=== PATIENT | female | born 1950 | race Caucasian/White ===

== ENCOUNTER → 2016-09-20 | Outpatient (REF) | payer OTHER | LOC: M LAB REF 16:49 | PROVIDERS: ATTEND Physician Assistant | DX: N39.0 Urinary tract infection, site not specified (principal) ==

== ENCOUNTER → 2016-10-29 | Outpatient (REF) | payer OTHER ==
[2016-10-29 17:03] LABS: IMMUNOGLOBULIN A 62.9 MG/DL (70-400); IMMUNOGLOBULIN G 410 MG/DL (681-1648); IMMUNOGLOBULIN M 790 MG/DL (40-230); TOTAL PROTEIN 6.7 GM/DL (6.4-8.2)
[2016-10-31 10:54] LABS: ALBUMIN % 60.9 % (55.8-66.1)
[2016-10-31 10:55] LABS: ALBUMIN 4.08 GM/DL (3.29-5.55); GAMMA GLOBULIN % 13.8 % (11.1-18.8)
[2016-11-01 00:06] LABS: FREE KAPPA LIGHT CHAINS SERUM 28.2 mg/L (3.30-19.40); FREE LAMBDA LIGHT CHAINS SERUM 5.79 mg/L (5.71-26.30); KAPPA/LAMBDA RATIO SERUM 4.87 (0.26-1.65)
== END ==
LOC: M LAB REF 12:35
PROVIDERS: ATTEND Internal Medicine Medical Oncology
DX: D47.2 Monoclonal gammopathy (principal); N18.6 End stage renal disease

== ENCOUNTER → 2017-01-27 | Outpatient (CLI) | payer OTHER ==
[2017-01-27 07:52] LABS: ALBUMIN 3.6 GM/DL (3.2-5.2); ALBUMIN/GLOBULIN RATIO 1.09 (1.00-1.93); ALKALINE PHOSPHATASE 55 U/L (45-117); ALT/SGPT 23 U/L (12-78); ANION GAP 6 MEQ/L (8-16); AST/SGOT 16 U/L (15-37); BILIRUBIN,TOTAL 0.3 MG/DL (0.2-1.0); BLOOD UREA NITROGEN 18 MG/DL (7-18); CALCIUM LEVEL 8.7 MG/DL (8.8-10.2); CARBON DIOXIDE LEVEL 31 MEQ/L (21-32); CHLORIDE LEVEL 104 MEQ/L (98-107); CHOLESTEROL LEVEL 206 MG/DL (<200); CREATININE FOR GFR 0.97 MG/DL (0.55-1.02); GLOMERULAR FILTRATION RATE > 60.0 (>45); GLUCOSE, FASTING 88 MG/DL (80-110); POTASSIUM SERUM 4.1 MEQ/L (3.5-5.1); SODIUM LEVEL 141 MEQ/L (136-145); TOTAL PROTEIN 6.9 GM/DL (6.4-8.2); TRIGLYCERIDES LEVEL 144 MG/DL (<150)
== END ==
LOC: M LAB 07:02
PROVIDERS: ATTEND Emergency Medicine
DX: L50.1 Idiopathic urticaria (principal)

== ENCOUNTER → 2017-04-28 | Outpatient (REF) | payer MEDICARE, OTHER ==
[~2017-04-28] MED LIST: ASPI81TA85 PO; BIMA01SOL; COMBIGAN; LEVOTAB10
[2017-04-28 15:06] LABS: IMMUNOGLOBULIN A 58.1 MG/DL (70-400); IMMUNOGLOBULIN G 436 MG/DL (681-1648); IMMUNOGLOBULIN M 769 MG/DL (40-230); TOTAL PROTEIN 6.8 GM/DL (6.4-8.2)
[2017-04-29 15:03] LABS: ALBUMIN 4.26 GM/DL (3.29-5.55); ALBUMIN % 62.6 % (55.8-66.1); GAMMA GLOBULIN % 13.6 % (11.1-18.8)
[2017-04-30 14:14] LABS: FREE KAPPA LIGHT CHAINS SERUM 21.5 mg/L (3.3-19.4); FREE LAMBDA LIGHT CHAINS SERUM 5.1 mg/L (5.7-26.3); KAPPA/LAMBDA RATIO SERUM 4.22 (0.26-1.65)
== END ==
LOC: M LAB REF 13:35
PROVIDERS: ATTEND Internal Medicine Medical Oncology
DX: D47.2 Monoclonal gammopathy (principal)

== ENCOUNTER → 2017-05-13 | Outpatient (CLI) | payer MEDICARE, OTHER ==
[~2017-05-13] MED LIST changes: +GASTROGRAFIN SOLUTION 30ML (Q9963) As Ordered ONE; +ISOVUE-370 76% 100ML VIAL (Q9967) As Ordered ONE
--- NOTE | 2017-05-13 13:25 | REP ---
CT abdomen and pelvis without and with IV contrast: With oral contrast. History: Question lymphadenopathy. IgM gammopathy with question of splenomegaly on physical examination. Comparison CT abdomen pelvis September 03, 2012. CT contrast dose: 100 mL of intravenous Isovue 370. CT findings: The craniocaudal span of the liver in the midclavicular line is 20.3 cm. The liver is considered enlarged. The spleen is normal in size measuring 10 cm in greatest transverse dimension. No focal hepatic or splenic lesion is seen. No adrenal lesion is seen on either side. No pancreatic abnormality is observed. The gallbladder is unremarkable. No retroperitoneal mass or adenopathy is seen. The kidneys are morphologically intact. There is mild left-sided hydronephrosis however. The left ureter is slightly prominent proximally. No cyst or mass is seen. No ureteral calculus is observed. There are 1 or 2 parapelvic cysts in the left kidney. No filling defect is seen in the collecting system on either side. On bone window settings there is a bilateral L5 spondylolysis and a grade 1 4 mm L5-S1 spondylolisthesis. Degenerative disc disease is seen at L5-S1 and at L4-5. No bony destructive lesion is appreciated. Small and large bowel loops are unremarkable. The patient is status post hysterectomy. Impression: Mild hepatomegaly again noted. No evidence of splenomegaly. No evidence of abdominal lymphadenopathy. Mild hydronephrosis and hydroureter on the left no apparent etiology. Parapelvic cyst left kidney. No other abnormality. Signed by Jim Draper MD 05/13/2017 05:17 P
== END ==
LOC: M RAD 10:47
PROVIDERS: ATTEND Internal Medicine Medical Oncology
DX: D47.2 Monoclonal gammopathy (principal); R16.0 Hepatomegaly, not elsewhere classified; N28.1 Cyst of kidney, acquired
CPT/HCPCS: 74178; Q9963; Q9967

== ENCOUNTER → 2017-05-15 | Outpatient (CLI) | payer MEDICARE, OTHER ==
[~2017-05-15] MED LIST changes: -GASTROGRAFIN SOLUTION 30ML (Q9963) As Ordered ONE; -ISOVUE-370 76% 100ML VIAL (Q9967) As Ordered ONE
--- NOTE | 2017-05-15 10:26 | REP ---
Digital diagnostic bilateral mammography with CAD and focused left breast ultrasound: History: Palpable lump left breast 7-8 o'clock position. The patient reports that this is not palpable today. Comparison mammography April 17, 2016, March 09, 2015, and February 16, 2014. Mammographic findings: Breast parenchyma remains heterogeneously dense in a pattern which may inhibit the sensitivity of mammography. There is no dominant density in the inferomedial quadrant of the left breast or elsewhere on either side mammographically visible. No architectural distortion or microcalcification is seen. No worrisome skin change is seen Focused left breast sonography findings: The left breast is scanned from 7 o'clock to 9 o'clock. Mildly heterogeneous fibroglandular background echotexture is seen. No cyst, mass or acoustic shadowing is appreciated. Impression: BIRADS category 2 benign bilateral breast imaging. This negative report should not dissuade one from biopsy of a palpable mass depending on its clinical characteristics. Clinical follow-up is recommended. BI-RADS/ACR category 2 mammogram. Benign finding(s). Routine annual screening mammography (for women over age 40). This mammogram was interpreted with the aid of an FDA-approved computer-aided detection system. The patient states she had a clinical breast exam in May 04, 2017 The patient letter being requested is M2 dense. Signed by Jim Draper MD 05/15/2017 02:36 P
== END ==
LOC: M RAD 08:40
PROVIDERS: ATTEND Nurse Practitioner Family
DX: N64.4 Mastodynia (principal)
CPT/HCPCS: 76642; G0204

== ENCOUNTER 2017-05-29 14:15 | Emergency (ER) | payer MEDICARE, OTHER ==
[~2017-05-29] VITALS: Ht 170.2 cm; Wt 65.9 kg
[2017-05-29 14:17] VITALS: BP 103/52
[2017-05-29] MEDS ORDERED: COMBIGAN (14:26)
[2017-05-29] MEDS ORDERED: LEVOTAB10 (14:26)
[2017-05-29] MEDS ORDERED: BIMA01SOL (14:26)
[2017-05-29] MEDS ORDERED: RABIES VACCINE HUMAN 2.5 INTERNATIONAL UNITS/ML VIAL (90675) IM ONE (15:30)
[2017-05-29] MEDS ORDERED: RABIES IMMUNE GLOBULIN 1500 INTERNATIONAL UNITS/10 ML VIAL (90375) IM ONE (15:30)
== END 2017-05-29 16:18 | disposition home or self-care (01) ==
LOC: M ED 14:15
DX: Z20.3 Contact with and (suspected) exposure to rabies (principal); Z23 Encounter for immunization; M79.645 Pain in left finger(s); M79.89 Other specified soft tissue disorders; H40.9 Unspecified glaucoma; Z86.73 Personal history of transient ischemic attack (TIA), and cerebral infarction without residual deficits; Z79.82 Long term (current) use of aspirin; Z79.899 Other long term (current) drug therapy; Z88.5 Allergy status to narcotic agent

== ENCOUNTER 2017-06-01 14:15 | Emergency (ER) | payer MEDICARE, OTHER ==
[~2017-06-01] VITALS: Ht 170.2 cm; Wt 65.9 kg
[~2017-06-01 14:15] MED LIST changes: -ASPI81TA85 PO
[2017-06-01 14:16] VITALS: BP 113/56
[2017-06-01] MEDS ORDERED: ASPI81TA85 PO (14:22)
[2017-06-01] MEDS ORDERED: RABIES VACCINE HUMAN 2.5 INTERNATIONAL UNITS/ML VIAL (90675) IM ONE (15:00)
== END 2017-06-01 15:25 | disposition home or self-care (01) ==
LOC: M ED 14:15
DX: Z20.3 Contact with and (suspected) exposure to rabies (principal)

== ENCOUNTER 2017-06-05 14:59 | Emergency (ER) | payer MEDICARE, OTHER ==
[~2017-06-05] VITALS: Ht 170.2 cm; Wt 65.9 kg
[~2017-06-05 14:59] MED LIST changes: +ASPI81TA85 PO
[2017-06-05] MEDS ORDERED: RABIES VACCINE HUMAN 2.5 INTERNATIONAL UNITS/ML VIAL (90675) IM ONE (16:30)
[2017-06-05 17:01] VITALS: BP 118/58
== END 2017-06-05 17:02 | disposition home or self-care (01) ==
LOC: M ED 14:59
DX: Z20.3 Contact with and (suspected) exposure to rabies (principal)

== ENCOUNTER 2017-06-12 14:18 | Emergency (ER) | payer MEDICARE, OTHER ==
[~2017-06-12] VITALS: Ht 170.2 cm; Wt 65.9 kg
[2017-06-12 14:18] VITALS: BP 122/56
[2017-06-12] MEDS ORDERED: RABIES VACCINE HUMAN 2.5 INTERNATIONAL UNITS/ML VIAL (90675) IM ONE (17:15)
== END 2017-06-12 17:32 | disposition home or self-care (01) ==
LOC: M ED 14:18
DX: Z20.3 Contact with and (suspected) exposure to rabies (principal); Z79.899 Other long term (current) drug therapy; Z79.82 Long term (current) use of aspirin; Z88.5 Allergy status to narcotic agent

== ENCOUNTER 2017-09-17 06:29 | Emergency (ER) | payer MEDICARE, OTHER ==
[2017-09-17 07:07] LABS: BASO # 0.1 10^3/uL (0.0-0.2); BASO % 0.9 % (0.0-1.0); EOS % 0.4 % (0.0-3.0); HEMATOCRIT 35.9 % (36.0-47.0); HEMOGLOBIN 12.6 g/dl (12.0-16.0); IMMATURE GRANULOCYTE % 0.2 % (0-0); LYMPH # 1.7 10^3/uL (1.5-4.5); LYMPH % 29.9 % (24.0-44.0); MEAN CORPUSCULAR HEMOGLOBIN 30.3 pg (27.0-33.0); MEAN CORPUSCULAR HGB CONC 35.1 g/dl (32.0-36.5); MEAN CORPUSCULAR VOLUME 86.3 fl (80.0-96.0); MONO # 0.7 10^3/uL (0.0-0.8); MONO % 12.6 % (0.0-5.0); NEUTROPHILS # 3.1 10^3/uL (1.8-7.7); PLATELET COUNT, AUTOMATED 229 10^3/uL (150-450); RED BLOOD COUNT 4.16 10^6/uL (4.00-5.40); RED CELL DISTRIBUTION WIDTH 12.4 % (11.5-14.5); WHITE BLOOD COUNT 5.6 10^3/uL (4.0-10.0)
[2017-09-17] MEDS: KETOROLAC 30 MG/ML VIAL (J1885) IV (07:15)
[2017-09-17] MEDS: MORPHINE 4 MG/ML 1ML SYRINGE IV ×2 (07:16→09:37)
[2017-09-17] MEDS: NS 1,000 ML IV (07:16)
[2017-09-17 07:32] LABS: ALBUMIN 3.9 GM/DL (3.2-5.2); ALBUMIN/GLOBULIN RATIO 1.15 (1.00-1.93); ALKALINE PHOSPHATASE 54 U/L (45-117); ALT/SGPT 26 U/L (12-78); AMYLASE 48 U/L (25-115); ANION GAP 9 MEQ/L (8-16); AST/SGOT 25 U/L (7-37); BILIRUBIN,DIRECT < 0.1 MG/DL (0.0-0.2); BILIRUBIN,TOTAL 0.4 MG/DL (0.2-1.0); BLOOD UREA NITROGEN 15 MG/DL (7-18); CALCIUM LEVEL 9.2 MG/DL (8.8-10.2); CARBON DIOXIDE LEVEL 25 MEQ/L (21-32); CHLORIDE LEVEL 106 MEQ/L (98-107); GLOMERULAR FILTRATION RATE 58.7 (>45); GLUCOSE, FASTING 106 MG/DL (80-110); LIPASE 146 U/L (73-393); POTASSIUM SERUM 3.8 MEQ/L (3.5-5.1); SODIUM LEVEL 140 MEQ/L (136-145); TOTAL PROTEIN 7.3 GM/DL (6.4-8.2)
[2017-09-17 07:38] LABS: APPEARANCE, URINE CLEAR (CLEAR); BACTERIA, URINE AUTO NEGATIVE (NEGATIVE); BILIRUBIN, URINE AUTO NEGATIVE (NEGATIVE); BLOOD, URINE BLOOD NEGATIVE (NEGATIVE); COLOR, URINE YELLOW (YELLOW); GLUCOSE, URINE (UA) AUTO NEGATIVE (NEGATIVE); KETONE, URINE AUTO NEGATIVE (NEGATIVE); LEUKOCYTE ESTERASE, URINE AUTO NEGATIVE (NEGATIVE); NITRITE, URINE AUTO NEGATIVE (NEGATIVE); PROTEIN, URINE AUTO NEGATIVE (NEGATIVE); RBC, URINE AUTO 2 /HPF (0-3); SPECIFIC GRAVITY URINE AUTO 1.016 (1.002-1.035); SQUAMOUS EPITHELIAL CELL UR AU 1 /HPF (0-6); UROBILINOGEN, URINE AUTO 0.2 mg/dL (0.0-2.0); WBC, URINE AUTO 0 /HPF (0-3)
[2017-09-17 07:48] LABS: LACTIC ACID SEPSIS PROTOCOL 1.9 MMOL/L (0.4-2.0)
[2017-09-17] MEDS ORDERED: GASTROGRAFIN SOLUTION 30ML (Q9963) As Ordered (09:08)
[2017-09-17] MEDS: GASTROGRAFIN SOLUTION 30ML PO (09:20)
[2017-09-17] MEDS: GASTROGRAFIN SOLUTION 30ML (Q9963) PO (09:20)
[2017-09-17] MEDS: ONDANSETRON 4MG/2ML VIAL (J2405) IV (09:36)
[2017-09-17] MEDS: LORazepam 2 MG/ML VIAL (J2060) IV (09:37)
[2017-09-17] MEDS ORDERED: ISOVUE-370 76% 100ML VIAL (Q9967) As Ordered (11:02)
[2017-09-17] MEDS: ONDANSETRON 4 MG ORAL DISINTEGRATING TAB (S0181) PO (13:06)
== END 2017-09-17 13:38 | disposition home or self-care (01) ==
LOC: M ED 06:29
DX: M54.31 Sciatica, right side (principal); Z79.899 Other long term (current) drug therapy; Z79.82 Long term (current) use of aspirin; Z86.69 Personal history of other diseases of the nervous system and sense organs
CPT/HCPCS: Q9963

== ENCOUNTER → 2017-10-21 | Outpatient (CLI) | payer MEDICARE, OTHER | LOC: M RAD 12:22 | DX: M51.16 Intervertebral disc disorders with radiculopathy, lumbar region (principal) | CPT/HCPCS: 72148 ==

== ENCOUNTER → 2017-11-17 | Outpatient (REF) | payer MEDICARE, OTHER ==
[2017-11-17 15:00] LABS: IMMUNOGLOBULIN A 63.6 MG/DL (70-400); IMMUNOGLOBULIN G 429 MG/DL (681-1648); IMMUNOGLOBULIN M 821 MG/DL (40-230); TOTAL PROTEIN 6.6 GM/DL (6.4-8.2)
[2017-11-18 13:48] LABS: ALBUMIN 4.11 GM/DL (3.29-5.55); ALBUMIN % 62.2 % (55.8-66.1); ALPHA-1-GLOBULIN % 3.6 % (2.9-4.9); ALPHA-1-GLOBULINS 0.24 GM/DL (0.17-0.41); ALPHA-2-GLOBULINS 0.66 GM/DL (0.42-0.99); BETA-1-GLOBULINS 0.44 GM/DL (0.28-0.60); BETA-1-GLOBULINS % 6.7 % (4.7-7.2); BETA-2-GLOBULINS 0.26 GM/DL (0.19-0.55); GAMMA GLOBULIN % 13.5 % (11.1-18.8); GAMMA GLOBULINS 0.89 GM/DL (0.65-1.58)
[2017-11-19 00:06] LABS: FREE KAPPA LIGHT CHAINS SERUM 22.2 mg/L (3.3-19.4); FREE LAMBDA LIGHT CHAINS SERUM 6.5 mg/L (5.7-26.3); KAPPA/LAMBDA RATIO SERUM 3.42 (0.26-1.65)
== END ==
LOC: M LAB REF 13:34
DX: D47.2 Monoclonal gammopathy (principal)
CPT/HCPCS: 84165

== ENCOUNTER → 2018-02-11 | Outpatient (CLI) | payer MEDICARE, OTHER ==
[2018-02-11 09:50] LABS: ALBUMIN 3.8 GM/DL (3.2-5.2); ALBUMIN/GLOBULIN RATIO 1.27 (1.00-1.93); ALKALINE PHOSPHATASE 54 U/L (45-117); ALT/SGPT 20 U/L (12-78); ANION GAP 6 MEQ/L (8-16); AST/SGOT 17 U/L (7-37); BILIRUBIN,TOTAL 0.5 MG/DL (0.2-1.0); BLOOD UREA NITROGEN 17 MG/DL (7-18); CALCIUM LEVEL 8.6 MG/DL (8.8-10.2); CARBON DIOXIDE LEVEL 28 MEQ/L (21-32); CHLORIDE LEVEL 109 MEQ/L (98-107); CHOLESTEROL LEVEL 218 MG/DL (<200); CHOLESTEROL RISK RATIO 4.638 (<5); CREATININE FOR GFR 0.92 MG/DL (0.55-1.30); GLOMERULAR FILTRATION RATE > 60.0 (>45); GLUCOSE, FASTING 87 MG/DL (70-100); HDL CHOLESTEROL 47 MG/DL (>40); LDL CHOLESTEROL 140.6 MG/DL (<100); NON-HDL-C 171 MG/DL; POTASSIUM SERUM 4.2 MEQ/L (3.5-5.1); SODIUM LEVEL 143 MEQ/L (136-145); TOTAL PROTEIN 6.8 GM/DL (6.4-8.2); TRIGLYCERIDES LEVEL 152 MG/DL (<150)
[2018-02-11 11:07] LABS: TOTAL 25(OH) VITAMIN D 38.4 NG/ML (30.0-100.0)
== END ==
LOC: M LAB 08:54
DX: L50.1 Idiopathic urticaria (principal)
CPT/HCPCS: 80053

== ENCOUNTER 2018-04-21 06:46 | Day surgery (SDC) | payer MEDICARE, OTHER ==
[2018-04-21] MEDS: NS 1,000 ML IV (07:00)
[2018-04-21] MEDS ORDERED: LIDOCAINE 2% INJ 100 MG/5 ML SDV (FOR ANES.) As Ordered (07:06)
[2018-04-21] MEDS ORDERED: PROPOFOL 200 MG/20 ML VIAL As Ordered (07:06)
== END 2018-04-21 08:58 | disposition home or self-care (01) ==
LOC: M OPP 06:46
DX: Z12.11 Encounter for screening for malignant neoplasm of colon (principal); K64.0 First degree hemorrhoids; Z86.73 Personal history of transient ischemic attack (TIA), and cerebral infarction without residual deficits; G62.9 Polyneuropathy, unspecified; Z86.19 Personal history of other infectious and parasitic diseases; G43.909 Migraine, unspecified, not intractable, without status migrainosus; L40.9 Psoriasis, unspecified; L71.9 Rosacea, unspecified; Z79.82 Long term (current) use of aspirin; Z79.899 Other long term (current) drug therapy; Z80.1 Family history of malignant neoplasm of trachea, bronchus and lung
CPT/HCPCS: G0121

== ENCOUNTER → 2018-06-01 | Outpatient (CLI) | payer MEDICARE, OTHER | LOC: M WHC 10:21 | DX: Z12.31 Encounter for screening mammogram for malignant neoplasm of breast (principal); Z85.41 Personal history of malignant neoplasm of cervix uteri; Z92.29 Personal history of other drug therapy | CPT/HCPCS: 77067 ==

== ENCOUNTER → 2019-04-19 | Outpatient (CLI) | payer MEDICARE, OTHER ==
[~2019-04-19] MED LIST changes: +CALC600T7 PO; +FISH120012 PO; +LIDO5DIS41 TD; +MOBI4TAB PO; +MULT1TAB18 PO; +SKEL800T97 PO
[2019-04-19 09:59] LABS: BASO % 0.6 % (0.0-1.0); EOS # 0.1 10^3/uL (0.0-0.50); EOS % 1.3 % (0.0-3.0); HEMATOCRIT 35.7 % (36.0-47.0); HEMOGLOBIN 11.8 g/dl (12.0-15.5); LYMPH # 1.6 10^3/uL (1.5-4.5); LYMPH % 34.7 % (24.0-44.0); MEAN CORPUSCULAR HEMOGLOBIN 29.8 pg (27.0-33.0); MEAN CORPUSCULAR HGB CONC 33.1 g/dl (32.0-36.5); MEAN CORPUSCULAR VOLUME 90.2 fl (80.0-96.0); MONO # 0.7 10^3/uL (0.0-0.8); MONO % 15.2 % (0.0-5.0); NEUTROPHILS # 2.2 10^3/uL (1.8-7.7); PLATELET COUNT, AUTOMATED 205 10^3/uL (150-450); RED BLOOD COUNT 3.96 10^6/uL (4.00-5.40); WHITE BLOOD COUNT 4.7 10^3/uL (4.0-10.0)
[2019-04-19 10:28] LABS: ALBUMIN 3.6 GM/DL (3.2-5.2); ALT/SGPT 22 U/L (12-78); BILIRUBIN,TOTAL 0.4 MG/DL (0.2-1.0); BLOOD UREA NITROGEN 16 MG/DL (7-18); CALCIUM LEVEL 8.9 MG/DL (8.8-10.2); CARBON DIOXIDE LEVEL 31 MEQ/L (21-32); CHLORIDE LEVEL 109 MEQ/L (98-107); CHOLESTEROL LEVEL 206 MG/DL (<200); CHOLESTEROL RISK RATIO 4.382 (<5); CREATININE FOR GFR 0.91 MG/DL (0.55-1.30); GLOMERULAR FILTRATION RATE > 60.0 (>39); GLUCOSE, FASTING 82 MG/DL (70-100); HDL CHOLESTEROL 47 MG/DL (>40); LDL CHOLESTEROL 119 MG/DL (<100); NON-HDL-C 159 MG/DL; POTASSIUM SERUM 4.3 MEQ/L (3.5-5.1); SODIUM LEVEL 143 MEQ/L (136-145); TOTAL PROTEIN 6.6 GM/DL (6.4-8.2); TRIGLYCERIDES LEVEL 199 MG/DL (<150)
== END ==
LOC: M LAB 08:45
PROVIDERS: ATTEND Physician Assistant
DX: E78.2 Mixed hyperlipidemia (principal); L50.1 Idiopathic urticaria

== ENCOUNTER → 2019-06-01 | Outpatient (CLI) | payer MEDICARE, OTHER ==
--- NOTE | 2019-06-01 11:44 | REPMRS ---
Patient History The patient states she had a clinical breast exam in 05/2019. Patient has history of cervical cancer at age 34 and is nulliparous. Family history of breast cancer under age 50 in maternal cousin. Took unspecified hormones for 1 year. 3D TOMOSYNTHESIS WAS PERFORMED. The [facility] Horta lifetime risk for breast cancer is 6.7%. Digital Woman Screen Mammo: June 01, 2019 - Exam #: [id number] Bilateral CC and MLO view(s) were taken. Technologist: Karen Anglin, Technologist Prior study comparison: June 01, 2018, bilateral digital woman screen mammo performed at [facility]. May 15, 2017, left breast digital mammo diagnostic bilateral, performed at [facility]. FINDINGS: The breast tissue is heterogeneously dense. This may lower the sensitivity of mammography. There has been no change in the appearance of the mammogram from the prior studies. There is a moderate amount of residual fibroglandular tissue which is fairly symmetric. There is no interval development of dominant mass, areas of architectural distortion, or clustered microcalcification typical of malignancy. Assessment: BI-RADS/ACR category 1 mammogram. Negative Mammogram. Recommendation Routine screening mammogram in 1 year (for women over age 40). This mammogram was interpreted with the aid of an FDA-approved computer-aided dectection system. Electronically Signed By: Jamey Hernandez MD 06/01/19 [id number]
== END ==
LOC: M WHC 09:03
PROVIDERS: ATTEND Nurse Practitioner Family
DX: Z01.419 Encounter for gynecological examination (general) (routine) without abnormal findings (principal); Z12.31 Encounter for screening mammogram for malignant neoplasm of breast; Z85.41 Personal history of malignant neoplasm of cervix uteri; Z92.29 Personal history of other drug therapy
CPT/HCPCS: 77063; 77067; G0101

== ENCOUNTER → 2019-10-07 | Outpatient (CLI) | payer MEDICARE, OTHER ==
[~2019-10-07] MED LIST changes: +LEVOTAB10 PO
[2019-10-07 17:04] LABS: BASO # 0.1 10^3/uL (0.0-0.2); EOS # 0.1 10^3/uL (0.0-0.5); EOS % 1.4 % (0.0-3.0); HEMATOCRIT 38.6 % (36.0-47.0); HEMOGLOBIN 12.4 g/dl (12.0-15.5); LYMPH # 1.9 10^3/uL (1.5-5.0); LYMPH % 36.9 % (24.0-44.0); MEAN CORPUSCULAR HGB CONC 32.1 g/dl (32.0-36.5); MEAN CORPUSCULAR VOLUME 93.2 fl (80.0-96.0); MONO # 0.8 10^3/uL (0.0-0.8); MONO % 14.5 % (0.0-5.0); NEUTROPHILS # 2.4 10^3/uL (1.5-8.5); PLATELET COUNT, AUTOMATED 220 10^3/uL (150-450); RED BLOOD COUNT 4.14 10^6/uL (4.00-5.40); WHITE BLOOD COUNT 5.2 10^3/uL (4.0-10.0)
[2019-10-07 17:38] LABS: ALBUMIN 3.8 GM/DL (3.2-5.2); ALT/SGPT 25 U/L (12-78); BILIRUBIN,TOTAL 0.5 MG/DL (0.2-1.0); BLOOD UREA NITROGEN 17 MG/DL (7-18); CALCIUM LEVEL 9.2 MG/DL (8.8-10.2); CARBON DIOXIDE LEVEL 30 MEQ/L (21-32); CHLORIDE LEVEL 106 MEQ/L (98-107); CREATININE FOR GFR 0.96 MG/DL (0.55-1.30); GLOMERULAR FILTRATION RATE > 60.0 (>39); GLUCOSE, FASTING 85 MG/DL (70-100); POTASSIUM SERUM 3.8 MEQ/L (3.5-5.1); SODIUM LEVEL 141 MEQ/L (136-145); TOTAL PROTEIN 6.8 GM/DL (6.4-8.2)
== END ==
LOC: M LAB 15:17
PROVIDERS: ATTEND Nurse Practitioner Family
DX: R00.2 Palpitations (principal)

== ENCOUNTER → 2019-12-21 | Outpatient (CLI) | payer MEDICARE, OTHER | LOC: M LABSMTC 10:46 | PROVIDERS: ATTEND Family Medicine | DX: Z11.59 Encounter for screening for other viral diseases (principal); Z20.828 Contact with and (suspected) exposure to other viral communicable diseases ==

== ENCOUNTER → 2020-01-31 | Outpatient (CLI) | payer MEDICARE, OTHER ==
[2020-01-31 15:22] LABS: BASO % 0.8 % (0.0-1.0); EOS # 0.1 10^3/uL (0.0-0.5); EOS % 1.6 % (0.0-3.0); HEMATOCRIT 34.9 % (36.0-47.0); HEMOGLOBIN 11.7 g/dl (12.0-15.5); LYMPH % 40.2 % (24.0-44.0); MEAN CORPUSCULAR HEMOGLOBIN 30.6 pg (27.0-33.0); MEAN CORPUSCULAR HGB CONC 33.5 g/dl (32.0-36.5); MEAN CORPUSCULAR VOLUME 91.4 fl (80.0-96.0); MONO # 0.5 10^3/uL (0.0-0.8); MONO % 10.9 % (0.0-5.0); NEUTROPHILS # 2.3 10^3/uL (1.5-8.5); NEUTROPHILS % 46.3 % (36.0-66.0); PLATELET COUNT, AUTOMATED 221 10^3/uL (150-450); RED BLOOD COUNT 3.82 10^6/uL (4.00-5.40)
[2020-01-31 15:50] LABS: ALBUMIN 3.6 GM/DL (3.2-5.2); BILIRUBIN,TOTAL 0.3 MG/DL (0.2-1.0); CALCIUM LEVEL 8.5 MG/DL (8.8-10.2); CREATININE FOR GFR 0.98 MG/DL (0.55-1.30); GLOMERULAR FILTRATION RATE 59.6 (>39); PERCENT SATURATION 14.6 % (13.2-45.0); POTASSIUM SERUM 4.5 MEQ/L (3.5-5.1); THYROID STIMULATING HORMONE 2.05 uIU/ML (0.358-3.740); TOTAL PROTEIN 6.6 GM/DL (6.4-8.2)
== END ==
LOC: M LAB 14:19
PROVIDERS: ATTEND Physician Assistant
DX: R06.02 Shortness of breath (principal)

== ENCOUNTER → 2020-07-11 | Outpatient (CLI) | payer MEDICARE, OTHER ==
[~2020-07-11] MED LIST changes: +ASPI81CH33 PO; -ASPI81TA85 PO; +ASPI81TA86 PO; +CALC-212 PO; -CALC600T7 PO; +CALCTAB38 PO; +FISH1000 PO; +IRON240T PO; +MULT1TAB50 PO
--- NOTE | 2020-07-11 09:08 | REP ---
INDICATION: UPPER CHEST WALL PAIN COMPARISON: 05/01/2020. TECHNIQUE: PA/Lateral FINDINGS: The heart is normal in size. There is no hilar or mediastinal adenopathy. There is calcification of the thoracic aorta. The lungs are clear. The pleural angles are unremarkable. Bones and soft tissues are unremarkable. IMPRESSION: No acute pulmonary disease. <Electronically signed by Jamey Hernandez > 07/11/20 0904
--- NOTE | 2020-07-11 09:15 | REP ---
INDICATION: SWELLING OF NECK ON LEFT. Soft tissue ultrasound left neck. History of swelling and pain. COMPARISON: None. TECHNIQUE: Soft tissue sonography performed in the left inferior neck near the clavicle in the region of patient's pain. FINDINGS: No mass, adenopathy, or abnormal fluid collection is appreciated. IMPRESSION: Negative soft tissue neck sonography. No abnormality noted. <Electronically signed by Venu Draper > 07/11/20 0942
== END ==
LOC: M RAD 07:31
PROVIDERS: ATTEND Internal Medicine Medical Oncology
DX: R22.1 Localized swelling, mass and lump, neck (principal)

== ENCOUNTER → 2020-09-27 | Outpatient (CLI) | payer MEDICARE, OTHER ==
--- NOTE | 2020-09-27 10:22 | REPMRS ---
Patient History The patient states she had a clinical breast exam in 09/2020. Patient has history of cervical cancer at age 34 and is nulliparous. Family history of breast cancer under age 50 in maternal cousin. Took unspecified hormones for 1 year. 3D TOMOSYNTHESIS WAS PERFORMED. [facility] lifetime risk for breast cancer is 6.3%. Volpara breast density c. Digital Woman Screen Mammo: September 27, 2020 - Exam #: [id number] Bilateral CC and MLO view(s) were taken. Technologist: Karen Anglin, Technologist Prior study comparison: June 01, 2019, bilateral digital woman screen mammo performed at [facility]. June 01, 2018, bilateral digital woman screen mammo performed at [facility]. FINDINGS: The breast tissue is heterogeneously dense. This may lower the sensitivity of mammography. There has been no change in the appearance of the mammogram from the prior studies. There is a moderate amount of residual fibroglandular tissue which is fairly symmetric. There is no interval development of dominant mass, areas of architectural distortion, or clustered microcalcification typical of malignancy. Assessment: BI-RADS/ACR category 1 mammogram. Negative Mammogram. Recommendation Routine screening mammogram in 1 year (for women over age 40). This mammogram was interpreted with the aid of an FDA-approved computer-aided dectection system. Electronically Signed By: Jamey Hernandez MD 09/27/20 [id number]
== END ==
LOC: M WHC 08:59
PROVIDERS: ATTEND Nurse Practitioner Family
DX: Z01.419 Encounter for gynecological examination (general) (routine) without abnormal findings (principal); Z12.31 Encounter for screening mammogram for malignant neoplasm of breast; Z85.41 Personal history of malignant neoplasm of cervix uteri; Z92.29 Personal history of other drug therapy
CPT/HCPCS: 77063; 77067; G0101

== ENCOUNTER → 2020-10-20 | Outpatient (CLI) | payer MEDICARE, OTHER ==
[2020-10-20 08:30] LABS: BASO # 0.1 10^3/uL (0.0-0.2); BASO % 1.2 % (0.0-1.0); EOS # 0.1 10^3/uL (0.0-0.5); EOS % 1.2 % (0.0-3.0); HEMATOCRIT 38.2 % (36.0-47.0); HEMOGLOBIN 12.5 g/dl (12.0-15.5); LYMPH # 1.8 10^3/uL (1.5-5.0); LYMPH % 36.3 % (24.0-44.0); MEAN CORPUSCULAR HEMOGLOBIN 29.8 pg (27.0-33.0); MEAN CORPUSCULAR HGB CONC 32.7 g/dl (32.0-36.5); MONO # 0.6 10^3/uL (0.0-0.8); MONO % 12.1 % (0.0-5.0); NEUTROPHILS # 2.4 10^3/uL (1.5-8.5); NEUTROPHILS % 48.8 % (36.0-66.0); PLATELET COUNT, AUTOMATED 203 10^3/uL (150-450); WHITE BLOOD COUNT 4.9 10^3/uL (4.0-10.0)
[2020-10-20 08:56] LABS: ALBUMIN 3.8 GM/DL (3.2-5.2); ALT/SGPT 24 U/L (12-78); BILIRUBIN,TOTAL 0.4 MG/DL (0.2-1.0); BLOOD UREA NITROGEN 16 MG/DL (7-18); CALCIUM LEVEL 9.3 MG/DL (8.8-10.2); CARBON DIOXIDE LEVEL 31 MEQ/L (21-32); CHLORIDE LEVEL 106 MEQ/L (98-107); CHOLESTEROL LEVEL 217 MG/DL (<200); CHOLESTEROL RISK RATIO 5.166 (<5); CREATININE FOR GFR 0.95 MG/DL (0.55-1.30); FERRITIN 61 NG/ML (8-252); GLOMERULAR FILTRATION RATE > 60.0 (>39); GLUCOSE, FASTING 90 MG/DL (70-100); HDL CHOLESTEROL 42 MG/DL (>40); IRON (FE) 121 UG/DL (50-170); LDL CHOLESTEROL 135 MG/DL (<100); NON-HDL-C 175 MG/DL; PERCENT SATURATION 41.4 % (13.2-45.0); POTASSIUM SERUM 4.3 MEQ/L (3.5-5.1); SODIUM LEVEL 142 MEQ/L (136-145); TOTAL IRON BINDING CAPACITY 292 UG/DL (250-450); TOTAL PROTEIN 6.7 GM/DL (6.4-8.2); TRIGLYCERIDES LEVEL 198 MG/DL (<150)
== END ==
LOC: M LAB 07:41
PROVIDERS: ATTEND Physician Assistant
DX: R06.02 Shortness of breath (principal); Z79.899 Other long term (current) drug therapy

== ENCOUNTER → 2020-11-02 | Outpatient (CLI) | payer MEDICARE, OTHER | LOC: M LAB 16:28 | PROVIDERS: ATTEND Physician Assistant Medical | DX: M25.50 Pain in unspecified joint (principal) ==

== ENCOUNTER → 2021-01-22 | Outpatient (CLI) | payer MEDICARE, OTHER ==
[~2021-01-22] MED LIST changes: +ATOR1TAB19 PO; +COMB0.2S OU; +COVI30VI IM; +SLOW160T12 PO
[2021-01-22 10:40] LABS: ALBUMIN 3.8 GM/DL (3.2-5.2); ALT/SGPT 27 U/L (12-78); BILIRUBIN,TOTAL 0.5 MG/DL (0.2-1.0); BLOOD UREA NITROGEN 12 MG/DL (7-18); CALCIUM LEVEL 9.4 MG/DL (8.8-10.2); CARBON DIOXIDE LEVEL 31 MEQ/L (21-32); CHLORIDE LEVEL 109 MEQ/L (98-107); CHOLESTEROL LEVEL 129 MG/DL (<200); CREATININE FOR GFR 0.86 MG/DL (0.55-1.30); GLOMERULAR FILTRATION RATE > 60.0 (>39); GLUCOSE, FASTING 90 MG/DL (70-100); HDL CHOLESTEROL 52 MG/DL (>40); LDL CHOLESTEROL 54 MG/DL (<100); NON-HDL-C 77 MG/DL; POTASSIUM SERUM 4.3 MEQ/L (3.5-5.1); SODIUM LEVEL 142 MEQ/L (136-145); TOTAL PROTEIN 6.6 GM/DL (6.4-8.2); TRIGLYCERIDES LEVEL 114 MG/DL (<150)
== END ==
LOC: M LAB 08:52
PROVIDERS: ATTEND Physician Assistant Medical
DX: E78.2 Mixed hyperlipidemia (principal)

== ENCOUNTER → 2021-07-10 | Outpatient (CLI) | payer MEDICARE, OTHER ==
[~2021-07-10] MED LIST changes: -BIMA01SOL; +BIMA01SOL OU
--- NOTE | 2021-07-10 13:21 | REP ---
INDICATION: TRAUMA LLE/ SUSPECT FX. COMPARISON: None. TECHNIQUE: Frontal lateral views of the left tibia and fibula on 4 images were obtained. FINDINGS: The left tibia and fibula are intact. There is no significant arthropathy of the left knee or ankle. There are no soft tissue abnormalities. IMPRESSION: Normal left tibia and fibula. <Electronically signed by Ramsey Hester > 07/10/21 1088
== END ==
LOC: M RAD 11:14
PROVIDERS: ATTEND Nurse Practitioner Adult Health
DX: M79.662 Pain in left lower leg (principal)

== ENCOUNTER → 2021-08-06 | Outpatient (CLI) | payer MEDICARE, OTHER ==
[2021-08-06 09:30] LABS: ALBUMIN 3.5 GM/DL (3.2-5.2); ALT/SGPT 30 U/L (12-78); BILIRUBIN,TOTAL 0.4 MG/DL (0.2-1.0); BLOOD UREA NITROGEN 19 MG/DL (7-18); CALCIUM LEVEL 8.9 MG/DL (8.8-10.2); CARBON DIOXIDE LEVEL 30 MEQ/L (21-32); CHLORIDE LEVEL 111 MEQ/L (98-107); CHOLESTEROL LEVEL 150 MG/DL (<200); CHOLESTEROL RISK RATIO 3.125 (<5); CREATININE FOR GFR 0.89 MG/DL (0.55-1.30); GLOMERULAR FILTRATION RATE > 60.0 (>39); GLUCOSE, FASTING 83 MG/DL (70-100); HDL CHOLESTEROL 48 MG/DL (>40); LDL CHOLESTEROL 76 MG/DL (<100); NON-HDL-C 102 MG/DL; POTASSIUM SERUM 4.5 MEQ/L (3.5-5.1); RHEUMATOID FACTOR QUANT 21.7 IU/ML (<15.0); SODIUM LEVEL 143 MEQ/L (136-145); TOTAL PROTEIN 6.3 GM/DL (6.4-8.2); TRIGLYCERIDES LEVEL 128 MG/DL (<150)
[2021-08-06 10:10] LABS: VITAMIN B12 LEVEL 681 PG/ML (247-911)
[2021-08-06 10:31] LABS: FOLATE 23.1 NG/ML (>5.4)
== END ==
LOC: M LAB 08:15
PROVIDERS: ATTEND Nurse Practitioner Family
DX: E78.2 Mixed hyperlipidemia (principal)

== ENCOUNTER → 2022-08-19 | Outpatient (CLI) | payer MEDICARE, OTHER ==
[2022-08-19 08:56] LABS: ALBUMIN 3.9 G/DL (3.2-5.2); BILIRUBIN,TOTAL 0.5 MG/DL (0.3-1.2); CALCIUM LEVEL 9.1 MG/DL (8.3-10.6); CHOLESTEROL RISK RATIO 2.7 (<5); CREATININE FOR GFR 0.99 MG/DL (0.55-1.30); GLOMERULAR FILTRATION RATE 58.5 (>39); HDL CHOLESTEROL 49.6 MG/DL (>40); LDL CHOLESTEROL 64.6 MG/DL (<100); POTASSIUM SERUM 4.1 MMOL/L (3.5-5.1); TOTAL PROTEIN 6.6 G/DL (5.7-8.2)
== END ==
LOC: M LAB 07:20
PROVIDERS: ATTEND Nurse Practitioner Family
DX: E78.2 Mixed hyperlipidemia (principal)

== ENCOUNTER → 2022-09-05 | Outpatient (CLI) | payer MEDICARE, OTHER | LOC: M WHC 09:11 | PROVIDERS: ATTEND Nurse Practitioner Family | DX: Z12.31 Encounter for screening mammogram for malignant neoplasm of breast (principal) ==

== ENCOUNTER → 2023-01-30 | Outpatient (CLI) | payer MEDICARE, OTHER ==
[~2023-01-30] MED LIST changes: +[UNRECOGNIZED DRUG - CODE] PO
== END ==
LOC: M RAD 11:08
PROVIDERS: ATTEND Physician Assistant
DX: M79.642 Pain in left hand (principal)

== ENCOUNTER → 2023-06-27 | Outpatient (CLI) | payer MEDICARE, OTHER ==
[~2023-06-27] MED LIST changes: +PROHANCE 279.3MG/ML 15ML VIAL As Ordered ONE
== END ==
LOC: M RAD 07:52
DX: H40.1134 Primary open-angle glaucoma, bilateral, indeterminate stage (principal); H47.033 Optic nerve hypoplasia, bilateral; Z96.1 Presence of intraocular lens; H52.4 Presbyopia
CPT/HCPCS: 70553; A9576

== ENCOUNTER → 2023-08-20 | Outpatient (CLI) | payer MEDICARE, OTHER ==
[~2023-08-20] MED LIST changes: -PROHANCE 279.3MG/ML 15ML VIAL As Ordered ONE
[2023-08-20 09:52] LABS: CHOLESTEROL RISK RATIO 3.18 (<5); FREE T4 0.98 NG/DL (0.89-1.76); HDL CHOLESTEROL 44.9 MG/DL (>40); LDL CHOLESTEROL 74.9 MG/DL (<100); NON-HDL-C 98.1 MG/DL; THYROID STIMULATING HORMONE 2.164 uIU/ML (0.55-4.78); TOTAL 25(OH) VITAMIN D 55.5 NG/ML (20.0-100.0)
== END ==
LOC: M LAB 08:32
PROVIDERS: ATTEND Nurse Practitioner Family
DX: E78.2 Mixed hyperlipidemia (principal)

== ENCOUNTER → 2023-09-24 | Outpatient (CLI) | payer MEDICARE, OTHER | LOC: M WHC 10:01 | PROVIDERS: ATTEND Nurse Practitioner Family | DX: Z12.31 Encounter for screening mammogram for malignant neoplasm of breast (principal) ==

== ENCOUNTER 2023-10-18 11:19 | Emergency (ER) | payer OTHER, MEDICARE ==
[~2023-10-18] VITALS: Ht 170.2 cm; Wt 64.5 kg
[2023-10-18 11:20] VITALS: BP 115/57; TEMP 97.4; O2SAT 98
[2023-10-18] MEDS ORDERED: XALA0.007 (11:39)
== END 2023-10-18 13:04 | disposition home or self-care (01) ==
LOC: M ED 11:19
DX: S50.11XA Contusion of right forearm, initial encounter (principal); W19.XXXA Unspecified fall, initial encounter; Y92.22 Religious institution as the place of occurrence of the external cause; Y93.9 Activity, unspecified; Y99.9 Unspecified external cause status; Z79.82 Long term (current) use of aspirin; Z79.899 Other long term (current) drug therapy; Z88.5 Allergy status to narcotic agent

== ENCOUNTER → 2023-10-21 | Outpatient (CLI) | payer OTHER, MEDICARE ==
[~2023-10-21] MED LIST changes: +XALA0.007
== END ==
LOC: M RAD 08:57
PROVIDERS: ATTEND Nurse Practitioner Family
DX: M79.671 Pain in right foot (principal)

== ENCOUNTER 2024-01-11 09:12 | Emergency (ER) | payer MEDICARE, OTHER ==
[~2024-01-11] VITALS: Ht 170.2 cm; Wt 67.2 kg
[2024-01-11] MEDS: NS 500 ML IV ONE (10:12)
[2024-01-11 10:13] LABS: BASO # 0.1 10^3/uL (0.0-0.2); EOS # 0.1 10^3/uL (0.0-0.5); HEMATOCRIT 38.3 % (36.0-47.0); LYMPH # 1.4 10^3/uL (1.5-5.0); MEAN CORPUSCULAR HEMOGLOBIN 30.7 pg (27.0-33.0); MEAN CORPUSCULAR HGB CONC 33.9 g/dl (32.0-36.5); MEAN CORPUSCULAR VOLUME 90.5 fl (80.0-96.0); MONO # 0.5 10^3/uL (0.0-0.8); MONO % 10.1 % (2.0-8.0); NEUTROPHILS # 3.3 10^3/uL (1.5-8.5); NEUTROPHILS % 61.7 % (36.0-66.0); PLATELET COUNT, AUTOMATED 197 10^3/uL (150-450); RED BLOOD COUNT 4.23 10^6/uL (4.00-5.40); WHITE BLOOD COUNT 5.3 10^3/uL (4.0-10.0)
[2024-01-11] MEDS ORDERED: ISOVUE-370 76% 100ML VIAL As Ordered ONE (10:23)
[2024-01-11 10:44] LABS: ALBUMIN 3.7 G/DL (3.2-5.2); ALKALINE PHOSPHATASE 54 U/L (46-116); ALT/SGPT 30 U/L (7.0-40); AST/SGOT 22 U/L (<34); BILIRUBIN,DIRECT 0.2 MG/DL (<0.4); BILIRUBIN,TOTAL 0.6 MG/DL (0.3-1.2); BLOOD UREA NITROGEN 13 MG/DL (9-23); CALCIUM LEVEL 9.6 MG/DL (8.3-10.6); CARBON DIOXIDE LEVEL 31 MMOL/L (20-31); CHLORIDE LEVEL 104 MMOL/L (98-107); CK-MB VALUE MASS 1.4 NG/ML (<3.6); CREATININE FOR GFR 0.92 MG/DL (0.55-1.30); GLOMERULAR FILTRATION RATE > 60.0 (>39); GLUCOSE, FASTING 85 MG/DL (74-106); POTASSIUM SERUM 4.1 MMOL/L (3.5-5.1); SODIUM LEVEL 139 MMOL/L (136-145); TOTAL PROTEIN 6.3 G/DL (5.7-8.2)
[2024-01-11 10:45] LABS: THYROXINE (T4) 6.1 UG/DL (4.5-10.9)
[2024-01-11 10:46] LABS: THYROID STIMULATING HORMONE 2.079 uIU/ML (0.55-4.78)
[2024-01-11] MEDS: ONDANSETRON 4MG 2ML VIAL IV ONE (10:51)
[2024-01-11] MEDS: MORPHINE 2 MG/ML 1ML VIAL IV PRN (10:52)
[2024-01-11 10:56] LABS: CPK CREATINE PHOSPHOKINASE 78 U/L (34-145); MB/CK RELATIVE INDEX 1.79 (< OR =4)
[2024-01-11 10:59] LABS: RSV AMPLIFICATION NEGATIVE (NEGATIVE)
[2024-01-11 11:37] LABS: CK-MB VALUE MASS 1.2 NG/ML (<3.6)
[2024-01-11 11:38] LABS: MB/CK RELATIVE INDEX 2.22 (< OR =4)
[2024-01-11] MEDS: CYCLOBENZAPRINE 5MG TABLET PO ONE (12:50)
[2024-01-11] MEDS: NS 1,000 ML IV ONE (12:50)
[2024-01-11] MEDS: ACETAMINOPHEN 325 MG TAB PO ONE (12:51)
[2024-01-11] MEDS: KETOROLAC 30 MG/ML 1ML VIAL IV ONE (12:51)
[2024-01-11] MEDS: LIDOCAINE 5% (LIDODERM) PATCH TD ONE (12:51)
[2024-01-11] MEDS ORDERED: CYCL5TAB PO (14:00)
[2024-01-11] MEDS ORDERED: IBUP-1022 PO (14:00)
[2024-01-11] MEDS ORDERED: LIDO5DIS41 TD (14:01)
[2024-01-11 14:15] VITALS: BP 110/52
[2024-01-11 14:16] VITALS: O2SAT 98
[2024-01-11 14:39] VITALS: TEMP 97.8
== END 2024-01-11 14:42 | disposition home or self-care (01) ==
LOC: M ED 09:12
DX: M62.830 Muscle spasm of back (principal); R00.1 Bradycardia, unspecified; S06.0X0A Concussion without loss of consciousness, initial encounter; R51.9 Headache, unspecified; R07.9 Chest pain, unspecified; R91.1 Solitary pulmonary nodule; Y92.9 Unspecified place or not applicable; Y93.9 Activity, unspecified; Y99.9 Unspecified external cause status; Z88.8 Allergy status to other drugs, medicaments and biological substances; Z79.1 Long term (current) use of non-steroidal anti-inflammatories (NSAID); Z79.810 Long term (current) use of selective estrogen receptor modulators (SERMs); Z79.899 Other long term (current) drug therapy
CPT/HCPCS: 70450; 71045; 71275; 72125; 80047; 80048; 80076; 82550; 82553; 83605; 83880; 84436; 84443; 84484; 85025; 87631; 93005; 93041; 94760; 96361; 96374; 96375; 99285; J1885; J2405; Q9967

== ENCOUNTER → 2024-08-25 | Outpatient (CLI) | payer MEDICARE, OTHER ==
[~2024-08-25] MED LIST changes: +CYCL5TAB4 PO; +IBUP-1022 PO; -XALA0.007; +XALA0.007 OU
[2024-08-25 10:28] LABS: ALBUMIN 3.5 G/DL (3.2-5.2); ALKALINE PHOSPHATASE 61 U/L (35-104); ALT/SGPT 24 U/L (7.0-40); AST/SGOT 21 U/L (<34); BILIRUBIN,TOTAL 0.5 MG/DL (0.3-1.2); BLOOD UREA NITROGEN 17 MG/DL (9-23); CALCIUM LEVEL 9.8 MG/DL (8.3-10.6); CARBON DIOXIDE LEVEL 30 MMOL/L (20-31); CHLORIDE LEVEL 106 MMOL/L (98-107); CHOLESTEROL LEVEL 157 MG/DL (<200); CHOLESTEROL RISK RATIO 3.74 (<5); CREATININE FOR GFR 0.87 MG/DL (0.55-1.30); GLOMERULAR FILTRATION RATE > 60.0 (>39); GLUCOSE, FASTING 86 MG/DL (74-106); HDL CHOLESTEROL 41.9 MG/DL (>40); LDL CHOLESTEROL 89.1 MG/DL (<100); NON-HDL-C 115.1 MG/DL; POTASSIUM SERUM 4.3 MMOL/L (3.5-5.1); SODIUM LEVEL 142 MMOL/L (136-145); TOTAL PROTEIN 6.7 G/DL (5.7-8.2); TRIGLYCERIDES LEVEL 130 MG/DL (<150)
[2024-08-25 10:30] LABS: FREE T4 1.01 NG/DL (0.89-1.76); THYROID STIMULATING HORMONE 2.231 uIU/ML (0.55-4.78)
== END ==
LOC: M LAB 08:29
PROVIDERS: ATTEND Family Medicine
DX: E78.2 Mixed hyperlipidemia (principal)

== ENCOUNTER → 2025-03-17 | Outpatient (CLI) | payer MEDICARE, OTHER ==
[~2025-03-17] MED LIST changes: +LIDO1ADH93 TD; -LIDO5DIS41 TD
[2025-03-17 09:52] LABS: BASO # 0.1 10^3/uL (0.0-0.2); BASO % 0.9 % (0.0-1.0); EOS # 0.1 10^3/uL (0.0-0.5); EOS % 1.1 % (0.0-3.0); LYMPH # 1.5 10^3/uL (1.5-5.0); LYMPH % 26.8 % (24.0-44.0); MONO # 0.8 10^3/uL (0.0-0.8); MONO % 14.3 % (2.0-8.0); NEUTROPHILS # 3.1 10^3/uL (1.5-8.5); NEUTROPHILS % 56.7 % (36.0-66.0); PLATELET COUNT, AUTOMATED 180 10^3/uL (150-450)
[2025-03-17 09:56] LABS: ERYTHROCYTE SEDIMENTATION RATE 13 mm/hr (0-30)
[2025-03-17 10:26] LABS: ALT/SGPT 21 U/L (7.0-40); AST/SGOT 21 U/L (<34); C REACTIVE PROTEIN QUANTITATIV < 0.50 MG/DL (<1.0); CALCIUM LEVEL 9.2 MG/DL (8.3-10.6); CARBON DIOXIDE LEVEL 31 MMOL/L (20-31); CHLORIDE LEVEL 106 MMOL/L (98-107); CREATININE FOR GFR 0.89 MG/DL (0.55-1.30); GLOMERULAR FILTRATION RATE 67.2 (>39); IRON (FE) 75 UG/DL (50-170); MAGNESIUM LEVEL 2.1 MG/DL (1.8-2.4); PERCENT SATURATION 28.3 % (13.2-45.0); POTASSIUM SERUM 4.5 MMOL/L (3.5-5.1); SODIUM LEVEL 146 MMOL/L (136-145)
[2025-03-17 10:28] LABS: FREE T4 1.01 NG/DL (0.89-1.76); TOTAL 25(OH) VITAMIN D 78.4 NG/ML (20.0-100.0)
[2025-03-23 19:45] LABS: LYME TOTAL ANTIBODY CIA <= 0.90 Index (<=0.90)
== END ==
LOC: M LAB 09:08
PROVIDERS: ATTEND Nurse Practitioner Family
DX: D64.9 Anemia, unspecified (principal); R53.83 Other fatigue; Z79.899 Other long term (current) drug therapy

== ENCOUNTER → 2025-08-09 | Outpatient (CLI) | payer MEDICARE, OTHER ==
[~2025-08-09] MED LIST changes: -IBUP-1022 PO; +IBUP600T42 PO
== END ==
LOC: M PLAIMG 11:33
PROVIDERS: ATTEND Nurse Practitioner Family
DX: M25.571 Pain in right ankle and joints of right foot (principal)